=== PATIENT | female | born 1990 | race Caucasian/White ===

== ENCOUNTER → 2017-05-11 | Outpatient (REF) | payer OTHER | LOC: M SFHCLERA 15:20 | DX: M54.5 Low back pain (principal) ==

== ENCOUNTER → 2017-06-14 | Outpatient (REF) | payer OTHER ==
[2017-06-14 20:34] LABS: INFLUENZA A AMPLIFICATION NEGATIVE (NEGATIVE); INFLUENZA B AMPLIFICATION NEGATIVE (NEGATIVE)
== END ==
LOC: M SFHCLERA 14:49
DX: R50.9 Fever, unspecified (principal); R51 Headache

== ENCOUNTER → 2018-06-14 | Outpatient (CLI) | payer OTHER ==
--- NOTE | 2018-06-15 09:37 | REP ---
LEFT KNEE, FIVE VIEWS: There is no evidence of an acute fracture, dislocation or intrinsic bone disease. IMPRESSION: No fracture or dislocation. Electronically Signed by Julius Funes MD 06/15/2018 10:36 P
== END ==
LOC: M LRY 14:58
PROVIDERS: ATTEND Nurse Practitioner Family
DX: M25.562 Pain in left knee (principal)

== ENCOUNTER → 2018-07-03 | Outpatient (REF) | payer OTHER | LOC: M SFHCLERA 20:40 | PROVIDERS: ATTEND Physician Assistant | DX: J02.9 Acute pharyngitis, unspecified (principal) ==

== ENCOUNTER → 2018-09-06 | Outpatient (REF) | payer OTHER | LOC: M SFHCLERA 13:30 | PROVIDERS: ATTEND Nurse Practitioner Family | DX: J02.9 Acute pharyngitis, unspecified (principal) ==

== ENCOUNTER 2018-10-23 15:29 | Emergency (ER) | payer OTHER ==
[~2018-10-23] VITALS: Ht 162.6 cm; Wt 54.5 kg
[2018-10-23] MEDS ORDERED: LEVO112T2 PO (15:47)
[2018-10-23] MEDS ORDERED: MITI1CAP PO (15:47)
[2018-10-23] MEDS ORDERED: MULTCAP PO (15:47)
[2018-10-23] MEDS ORDERED: FISH1000 PO (15:47)
[2018-10-23 17:14] LABS: FREE T4 1.23 NG/DL (0.76-1.46); THYROID STIMULATING HORMONE 0.09 uIU/ML (0.358-3.740)
[2018-10-23 17:53] VITALS: BP 119/79
--- NOTE | 2018-10-25 06:42 | ECGEPIP ---
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
== END 2018-10-23 18:10 | disposition home or self-care (01) ==
LOC: M ED 15:29
DX: R00.2 Palpitations (principal); I44.7 Left bundle-branch block, unspecified; J45.909 Unspecified asthma, uncomplicated; E07.9 Disorder of thyroid, unspecified; Z88.8 Allergy status to other drugs, medicaments and biological substances; Z79.899 Other long term (current) drug therapy

== ENCOUNTER → 2018-11-25 | Outpatient (CLI) | payer BC ==
[~2018-11-25] MED LIST: FISH1000 PO; LEVO112T2 PO; MITI1CAP PO; MULTCAP PO
--- NOTE | 2018-11-26 02:32 | REP ---
Clinical: Cough x3 weeks . Comparison: None . Technique: PA and lateral. Findings: The mediastinum and cardiac silhouette are normal. The lung camp are clear and without acute consolidation, effusion, or pneumothorax. The skeletal structures are intact and normal. Impression: 1. No acute cardiopulmonary process. Electronically Signed by Crispin Morris MD 11/26/2018 02:23 A
== END ==
LOC: M RAD 20:31
PROVIDERS: ATTEND Physician Assistant
DX: R05 Cough (principal)

== ENCOUNTER → 2020-10-25 | Outpatient (CLI) | payer OTHER ==
[~2020-10-25] MED LIST changes: +ISOVUE-300 61% 50ML VIAL As Ordered ONE; +PROHANCE 279.3MG/ML 5ML VIAL As Ordered ONE
--- NOTE | 2020-10-25 10:05 | REP ---
INDICATION: RT SHOULDER PAIN ? LABRAL/RCT. COMPARISON: None. TECHNIQUE: Coronal oblique T1, T2 fat sat, sagittal oblique T2 fat sat, axial T2 fat sat, gradient echo. Post arthrogram T1 fat sat and T2 fat sat in multiple planes. FINDINGS: Rotator cuff: There are findings compatible with a partial tear of the distal supraspinatus tendon anteriorly involving both bursal surface and undersurface. Acromioclavicular joint: Unremarkable. Acromion: Type 2 Biceps Tendon: In bicipital groove, no tenosynovitis. Hill Sach's deformity: None. Deltoid muscle: No abnormal signal. Biceps labral complex: Intact. Labrum: No tear. Cartilage: No defects. Bone marrow: No abnormal signal. Joint fluid: No effusion. IMPRESSION: Partial tear distal supraspinatus tendon involving the bursal surface and undersurface. No other significant finding. No evidence of labral tear. <Electronically signed by Julius Funes > 10/25/20 1002
--- NOTE | 2020-10-25 10:15 | REP ---
INDICATION: RT SHOULDER PAIN ? LABRAL/RCT. COMPARISON: None TECHNIQUE: The procedure was performed by AVERY Zheng, under the direct supervision of Dr. Funes. The benefits and risks of the procedure were explained to the patient, and an informed consent was obtained. Directly prior to the start of the procedure, a formal time-out was completed in the procedure room. The right glenohumeral joint space was localized using fluoroscopic guidance. The skin was prepped and draped in a sterile fashion. Approximately 4 mL of 1% Lidocaine 10 mg/ml was used as a local anesthetic. Using fluoroscopic guidance, a #22 gauge spinal needle was inserted and advanced into the right glenohumeral joint space. Approximately 1 mL of Isovue 300 was injected to verify placement. Ten mL of a solution containing 20 mL of sterile saline and 0.15 mL of ProHance was injected into the joint space. The needle was removed and the patient was taken to MRI for post procedural imaging. FINDINGS: The patient tolerated the procedure well and there were no immediate complications. IMPRESSION: Fluoroscopically guided intra-articular MRI arthrogram of the right shoulder. 0.1 minutes of fluoroscopy time was utilized for this procedure. Some fluoroscopic images are performed with last image hold technology. These images require no additional radiation. <Electronically signed by Mandie Goodwin > 10/25/20 1009 <Electronically signed by Julius Funes > 10/25/20 1011
== END ==
LOC: M RADPRO 06:35
PROVIDERS: ATTEND Orthopaedic Surgery
DX: S46.011D Strain of muscle(s) and tendon(s) of the rotator cuff of right shoulder, subsequent encounter (principal); M25.511 Pain in right shoulder
CPT/HCPCS: 23350; 73223; 77002; A9576; Q9967

== ENCOUNTER → 2021-05-16 | Outpatient (REF) | payer OTHER ==
[~2021-05-16] MED LIST changes: -ISOVUE-300 61% 50ML VIAL As Ordered ONE; +LEVO125T4 PO; +LEXA1TAB2 PO; +OMEP-218 PO; -PROHANCE 279.3MG/ML 5ML VIAL As Ordered ONE
[2021-05-16 13:04] LABS: RSV AMPLIFICATION NEGATIVE (NEGATIVE)
== END ==
LOC: M WUC 11:43
PROVIDERS: ATTEND Nurse Practitioner Family
DX: J06.9 Acute upper respiratory infection, unspecified (principal)